=== PATIENT | female | born 1945 | race Caucasian/White ===

== ENCOUNTER → 2016-06-28 | Outpatient (CLI) | payer OTHER | LOC: FIMAGING 12:39 | PROVIDERS: ATTEND Internal Medicine Cardiovascular Disease | DX: Z03.89 Encounter for observation for other suspected diseases and conditions ruled out (principal); I10 Essential (primary) hypertension ==

== ENCOUNTER → 2016-11-15 | Outpatient (CLI) | payer OTHER | LOC: BMCIMAGING 13:05 | PROVIDERS: ATTEND Family Medicine | DX: R07.81 Pleurodynia (principal); R93.8 Abnormal findings on diagnostic imaging of other specified body structures; X50.0XXA Overexertion from strenuous movement or load, initial encounter | CPT/HCPCS: 71101-PO ==

== ENCOUNTER 2017-03-16 10:08 | Inpatient (IN) | payer OTHER ==
--- NOTE | 2017-03-16 10:56 | EDPHY ---
General Narrative: CHIEF COMPLAINT: High blood pressure, sore throat HISTORY OF PRESENT ILLNESS: Patient complains of sore throat but so she was sent here due to high blood pressure. She went to urgent care today due to complaints of sore throat. Sore throat has been [id number] for the past 2 days. No associated complaints with. She was sent here because the urgent care was concerned about her blood pressure. Blood pressure was reportedly in the 180 systolic and greater than 100 diastolic. She has had no headache, confusion, dizziness. She does report some right arm weakness and difficulty riding without hand starting yesterday morning. This was moderate to severe but has started to improve, but she says she was not concerned about it. She has had no chest pain or shortness of breath. No abdominal pain. No difficulty moving her lower extremities or left upper extremity. No history of stroke but she does have history of hypertension. Patient is a poor historian and says that she has not been on any medications for this recently. REVIEW OF SYSTEMS: Ten systems reviewed and are negative unless otherwise noted in the HPI PCP: Dr. Jaramillo SPECIALISTS: None PAST MEDICAL HISTORY: Hypertension not on medication PAST SURGICAL HISTORY: None SOCIAL HISTORY: Nonsmoker. Occasional alcohol. No drug use FAMILY HISTORY: Noncontributory EXAMINATION General Appearance: Alert, no distress, no facial droop Head: normocephalic, atraumatic Eyes: Pupils equal and round, no conjunctival pallor or injection ENT, Mouth: Mucous membranes moist. Uvula midline. No deviation of the tongue. Mild erythema of the posterior pharynx. No edema. Airway is widely patent. Neck: Normal inspection, supple, non-tender Respiratory: Lungs are clear to auscultation Cardiovascular: Regular rate and rhythm. No murmur. Symmetric radial pulses 2 +. Gastrointestinal: Abdomen is soft and nontender Back: non-tender, no bony abnormalities Neurological: A&O, cranial nerves 2-12 grossly intact. nonfocal, normal gait. Strength symmetric in the upper extremities. No pronator drift. No dysmetria. NIH stroke scale 0. Skin: Warm and dry, no rash Extremities: Nontender, no pedal edema Psychiatric: Mood and affect normal DIFFERENTIAL DIAGNOSES: Including but not limited to TIA, hypertensive urgency, hypertensive urgency, benign hypertension MDM: 10:50 a.m. Hypertension with right upper extremity weakness that has nearly resolved. NIH stroke scale is 0. Patient was sent over from Urgent Care. Dr. Shaw is aware the patient. He would like the patient to receive MRI of the brain, carotid Doppler ultrasound, laboratory studies. She is in no acute distress. She has no chest pain of any kind. She has been noncompliant intermittently with hypertensive medications. She is not currently taking any medications for hypertension. She is in no acute distress. No signs of acute stroke. 11:30 a.m. Laboratory studies thus far negative. Ultrasound of the carotids pending. MRI of the brain pending. No acute distress. 12:50 p.m. Notified by radiologist Dr. Ivey. Multiple abnormalities on the MRI of the brain. One of which is an acute stroke in the left parietal white matter measuring 10 mm. The 2nd is a subacute stroke in the right frontal white matter measuring 4 mm. There are other multiple areas of microvascular hemorrhage. 1:10 p.m. Case was discussed with neurologist Dr. Jimenez. He is requesting CT angiography of the head and neck. He will follow in consultation the patient. He agrees with our decision to place the patient on Cardene. Proceed with hospitalist admission. 1:15 p.m. Case discussed with hospitalist Jennifer Grimaldo. She will admit the patient to the service of Dr. May. CT angiography pending. She is in no acute distress and is admitted in stable condition. 1:55 p.m. Patient has return from CT angiography. She is awake and alert in no acute distress. Cardio will be commands. Continue with admission. She is in stable condition. 3:15 p.m. Patient has already been admitted transfer to floor but I was notified by radiologist the CT angiography of the head and neck is unremarkable. Patient is not a tPA candidate as her symptoms started on morning. SUPERVISION: Patient was evaluated and examined in conjunction with my secondary supervising physician as documented. We have both examined the patient. - Diagnostics Imaging Results: Imaging Impressions Carotid Doppler Study 03/16/17 10:49 Impression: Normal for age. No flow-limiting stenosis. Measurement of carotid stenosis is based on velocity parameters that correlate the residual internal carotid diameter with [place] Symptomatic Carotid Endarterectomy Trial (NASCET) based stenosis levels. Brain MRI 03/16/17 10:50 Impression: Extensive cerebral white matter disease bilaterally associated with multiple prior microhemorrhages and left parietal acute lacunar infarction and subacute right frontal white matter lacunar infarction. Findings are most suggestive of poorly controlled hypertension with secondary white matter disease and microhemorrhages versus amyloid angiopathy. Other diagnoses such as multiple sclerosis, infectious/inflammatory etiology, vasculitis are felt to be less likely. Results called to Travon Pike PA-C, at 12:50 PM. Head CTA 03/16/17 13:12 Impression: 1. Normal CT angiogram of the neck. 2. Relatively CT angiogram of the [place], as detailed above. 3. Mild partially calcified plaque involving the distal vertebral artery bilaterally adjacent to the brainstem. Note: All calculations were performed using NASCET criteria. Findings discussed with Travon Pike PAC at 14:40 hour, 03/16/2017. Neck CTA 03/16/17 13:12 Impression: 1. Normal CT angiogram of the neck. 2. Relatively CT angiogram of the [place], as detailed above. 3. Mild partially calcified plaque involving the distal vertebral artery bilaterally adjacent to the brainstem. Note: All calculations were performed using NASCET criteria. Findings discussed with Travon Pike PAC at 14:40 hour, 03/16/2017. - History Smoking Status: Former smoker - Objective Vital Signs: Initial Vital Signs Temperature (C) 97.9 F 03/16/17 10:17 Heart Rate 109 H 03/16/17 10:17 Respiratory Rate 18 03/16/17 10:17 Blood Pressure 194/139 H 03/16/17 10:17 O2 Sat (%) 94 03/16/17 10:17 O2 Delivery Mode Room Air Allergies/Adverse Reactions: acetaminophen [From Tylenol] Allergy (Verified 03/16/17 13:41) Swelling/neck,face,throat propranolol Allergy (Verified 03/16/17 13:41) Other-Enter Comments Home Medications: Medication Instructions Recorded Herbals/Supplements -Info Only 1 ea PO DAILY 03/16/17 Laboratory Results: Laboratory Results 03/16/17 10:55 03/16/17 10:55 03/16/17 03/16/17 03/16/17 11:35 10:55 10:55 WBC RBC Hgb Hct MCV MCH MCHC RDW Plt Count MPV Neut % (Auto) Lymph % (Auto) [place] % (Auto) Eos % (Auto) Baso % (Auto) Nucleat RBC Rel Count Absolute Neuts (auto) Absolute Lymphs (auto) Absolute Monos (auto) Absolute Eos (auto) Absolute Basos (auto) Absolute Nucleated RBC Immature Gran % Immature Gran # PT 12.9 SEC SEC (12.0-15.0) INR 0.95 (0.83-1.16) APTT 33.7 SEC SEC (23.0-38.0) Sodium 141 mEq/L mEq/L (134-144) Potassium 3.1 mEq/L L mEq/L (3.5-5.2) Chloride 98 mEq/L mEq/L (97-110) Carbon Dioxide 29 mEq/l mEq/l (22-31) Anion Gap 14 mEq/L mEq/L (8-16) BUN 9 mg/dL mg/dL (7-23) Creatinine 0.9 mg/dL mg/dL (0.6-1.0) Estimated GFR > 60 Glucose 99 mg/dL mg/dL (70-100) Hemoglobin A1c 5.5 % % (4.0-6.0) Estim Average Glucose 111 mg/dL mg/dL (68-126) Calcium 9.2 mg/dL mg/dL (8.5-10.4) Total Bilirubin 0.5 mg/dL mg/dL (0.1-1.4) Conjugated Bilirubin 0.2 mg/dL mg/dL (0.0-0.5) Unconjugated Bilirubin 0.3 mg/dL mg/dL (0.0-1.1) AST 43 IU/L IU/L (14-46) ALT 37 IU/L IU/L (9-52) Alkaline Phosphatase 82 IU/L IU/L (38-126) Troponin I < 0.012 ng/mL ng/mL (0.000-0.034) Total Protein 7.7 g/dL g/dL (6.3-8.2) Albumin 4.5 g/dL g/dL (3.5-5.0) Specimen Hemolysis 133 03/16/17 10:55 WBC 3.36 10^3/uL L 10^3/uL (3.80-9.50) RBC 5.41 10^6/uL H 10^6/uL (4.18-5.33) Hgb 14.9 g/dL g/dL (12.6-16.3) Hct 43.7 % % (38.0-47.0) MCV 80.8 fL L fL (81.5-99.8) MCH 27.5 pg L pg (27.9-34.1) MCHC 34.1 g/dL g/dL (32.4-36.7) RDW 14.0 % % (11.5-15.2) Plt Count 173 10^3/uL 10^3/uL (150-400) MPV 11.1 fL fL (8.7-11.7) Neut % (Auto) 58.9 % % (39.3-74.2) Lymph % (Auto) 25.6 % % (15.0-45.0) [place] % (Auto) 14.6 % H % (4.5-13.0) Eos % (Auto) 0.0 % L % (0.6-7.6) Baso % (Auto) 0.6 % % (0.3-1.7) Nucleat RBC Rel Count 0.0 % % (0.0-0.2) Absolute Neuts (auto) 1.98 10^3/uL 10^3/uL (1.70-6.50) Absolute Lymphs (auto) 0.86 10^3/uL L 10^3/uL (1.00-3.00) Absolute Monos (auto) 0.49 10^3/uL 10^3/uL (0.30-0.80) Absolute Eos (auto) 0.00 10^3/uL L 10^3/uL (0.03-0.40) Absolute Basos (auto) 0.02 10^3/uL 10^3/uL (0.02-0.10) Absolute Nucleated RBC 0.00 10^3/uL 10^3/uL (0-0.01) Immature Gran % 0.3 % % (0.0-1.1) Immature Gran # 0.01 10^3/uL 10^3/uL (0.00-0.10) PT INR APTT Sodium Potassium Chloride Carbon Dioxide Anion Gap BUN Creatinine Estimated GFR Glucose Hemoglobin A1c Estim Average Glucose Calcium Total Bilirubin Conjugated Bilirubin Unconjugated Bilirubin AST ALT Alkaline Phosphatase Troponin I Total Protein Albumin Specimen Hemolysis Medications Given: Diltiazem HCl 125 mg/ Dextrose 125 mls @ 0 mls/hr IV CONT BEN; Per Protocol PRN Reason: Protocol Stop: 09/12/17 16:29 Last Admin: 03/16/17 17:12 Dose: 125 mls Discontinued Medications Aspirin (Aspirin) 325 mg PO ONCE ONE Stop: 03/16/17 16:24 Last Admin: 03/16/17 17:04 Dose: 325 mg Diltiazem HCl (Cardizem 25 Mg/5 Ml Vial) 10 mg IVP ONCE ONE Stop: 03/16/17 16:31 Last Admin: 03/16/17 16:29 Dose: 10 mg Nicardipine/Sodium Chloride (Cardene 0.1 Mg/Ml (Premix)) 200 mls @ 0 mls/hr IV CONT BEN; Titrate PRN Reason: Protocol Stop: 09/12/17 12:59 Last Admin: 03/16/17 13:17 Dose: 200 mls Potassium Chloride (Klor-Con) 40 meq PO ONCE ONE PRN Reason: Protocol Stop: 03/16/17 16:38 Last Admin: 03/16/17 17:00 Dose: 40 meq Departure - Departure Disposition: [facility] Inpatient Acute Clinical Impression: Acute CVA (cerebrovascular accident), Hypertensive emergency Condition: Fair
[2017-03-16 11:06] LABS: % IMMATURE GRANULYOCYTES 0.3 % (0.0-1.1); ABSOLUTE IMMATURE GRANULOCYTES 0.01 10^3/uL (0.00-0.10); ADD DIFF? NO; ADD MORPH? NO; ADD SCAN? NO; ATYPICAL LYMPHOCYTE FLAG 30 (0-99); FRAGMENT RBC FLAG 0 (0-99); HEMATOCRIT 43.7 % (38.0-47.0); HEMOGLOBIN 14.9 g/dL (12.6-16.3); LEFT SHIFT FLG 0 (0-99); LIPEMIA HEMOLYSIS FLAG 90 (0-99); MEAN CELL HEMOGLOBIN 27.5 pg (27.9-34.1); MEAN CELL HEMOGLOBIN CONCENTR. 34.1 g/dL (32.4-36.7); MEAN CELL VOLUME 80.8 fL (81.5-99.8); MEAN PLATELET VOLUME 11.1 fL (8.7-11.7); PLATELET CLUMPS FLAG 0 (0-99); PLATELET COUNT 173 10^3/uL (150-400); RED BLOOD CELL COUNT 5.41 10^6/uL (4.18-5.33)
[2017-03-16 11:18] LABS: INR 0.95 (0.83-1.16); PROTIME(PATIENT) 12.9 SEC (12.0-15.0)
[2017-03-16 11:19] LABS: ALANINE AMINOTRANSFERASE 37 IU/L (9-52); ALBUMIN 4.5 g/dL (3.5-5.0); ALKALINE PHOSPHATASE 82 IU/L (38-126); ANION GAP 14 mEq/L (8-16); APTT 33.7 SEC (23.0-38.0); ASPARTATE AMINOTRANSFERASE 43 IU/L (14-46); BILIRUBIN,TOTAL 0.5 mg/dL (0.1-1.4); BILIRUBIN-CONJUGATED 0.2 mg/dL (0.0-0.5); BILIRUBIN-UNCONJUGATED 0.3 mg/dL (0.0-1.1); CALCIUM 9.2 mg/dL (8.5-10.4); CARBON DIOXIDE 29 mEq/l (22-31); CHLORIDE 98 mEq/L (97-110); CREATININE 0.9 mg/dL (0.6-1.0); GLOMERULAR FILTRATION RATE > 60; GLUCOSE 99 mg/dL (70-100); POTASSIUM 3.1 mEq/L (3.5-5.2); SODIUM 141 mEq/L (134-144); SPECIMEN HEMOLYSIS 133; TOTAL PROTEIN 7.7 g/dL (6.3-8.2)
[2017-03-16 11:30] LABS: TROPONIN I < 0.012 ng/mL (0.000-0.034)
[2017-03-16] MEDS ORDERED: niCARdipine/NACL 200 ML IV SCH (13:00)
--- NOTE | 2017-03-16 13:06 | CPEKG ---
Heart Rate: 98 RR Interval: 612 P-R Interval: 200 QRSD Interval: 84 QT Interval: 384 QTC Interval: 491 P [place]: 37 QRS [place]: -34 T Wave [place]: 58 EKG Severity - ABNORMAL ECG - EKG Impression: SINUS RHYTHM EKG Impression: LEFT AXIS DEVIATION EKG Impression: PROBABLE LEFT VENTRICULAR HYPERTROPHY EKG Impression: BORDERLINE PROLONGED QT INTERVAL Electronically Signed By: Krishna Shaw 16-Mar-2017 15:22:03
[2017-03-16] MEDS ORDERED: IOPAMIDOL (ISOVUE 370) 100 ML BTL IV ONE (13:21)
[2017-03-16 14:18] LABS: HEMOGLOBIN A1C 5.5 % (4.0-6.0)
[2017-03-16] MEDS ORDERED: LABETALOL HCL 5 MG/ML 20 ML MDV IVP PRN (16:01)
--- NOTE | 2017-03-16 16:04 | CPEKG ---
Heart Rate: 132 RR Interval: 455 QRSD Interval: 82 QT Interval: 320 QTC Interval: 474 QRS [place]: 14 EKG Severity - ABNORMAL ECG - EKG Impression: ATRIAL FIBRILLATION EKG Impression: VENTRICULAR PREMATURE COMPLEX EKG Impression: ABERRANT COMPLEX EKG Impression: PROBABLE LVH WITH SECONDARY REPOL ABNRM EKG Impression: ST DEPRESSION, CONSIDER ISCHEMIA, ANT-LAT LDS Electronically Signed By: Rusty Castaneda 16-Mar-2017 20:51:34
[2017-03-16] MEDS ORDERED: DILTIAZEM 25 MG/5 ML VIAL IVP ONE ×2 (16:11→16:30)
[2017-03-16] MEDS ORDERED: ASPIRIN 325 MG TAB PO ONE (16:23)
[2017-03-16] MEDS ORDERED: PROTOCOL MAGNESIUM 1 DOSE IV PRN (16:25)
[2017-03-16] MEDS ORDERED: PROTOCOL POTASSIUM 1 DOSE MISC PRN (16:25)
[2017-03-16] MEDS ORDERED: ONDANSETRON DISINTEGRATING 4 MG TAB PO PRN (16:28)
[2017-03-16] MEDS ORDERED: ONDANSETRON 4 MG/2 ML VIAL IVP PRN (16:28)
[2017-03-16] MEDS ORDERED: POTASSIUM CL 10 MEQ TAB PO ONE ×2 (16:37→18:38)
[2017-03-16] MEDS: DILTIAZEM 125 MG in D5W 125 ML IV SCH (17:12)
--- NOTE | 2017-03-16 17:45 | GHP ---
[f rep st] HISTORY AND PHYSICAL DATE OF ADMISSION: 03/16/2017 CHIEF COMPLAINT: High blood pressure, sore throat, and recent motor dysfunction of her right arm. HISTORY OF PRESENT ILLNESS: The patient is a 71-year-old female with a history of hypertension which is untreated, who presents to the emergency department complaining of elevated blood pressure and sore throat. She went to Urgent Care and was noted to have elevated blood pressure greater than 180/100. She further reports that she had some difficulty writing with her right hand yesterday and also noticed some weakness in her right upper extremity. Her symptoms improved so she did not seek care. She denies a history of headaches or vision changes. She denies chest pain or shortness of breath. During my evaluation, she appears to be in rapid AFib and does indeed endorse heart palpitations but is currently chest pain free. In the emergency department, a brain MRI revealed acute and subacute strokes with prior microhemorrhages, likely related to uncontrolled hypertension. A carotid artery Doppler study showed no flow limiting stenosis. She was placed on a Cardene drip for a blood pressure of 220/120 and was admitted to the intensive care unit for further management. PAST MEDICAL HISTORY: Hypertension, not treated. MEDICATIONS: Please see [employer] for completed outpatient medication list. ALLERGIES: Acetaminophen and propranolol she states causes high blood pressure and suicidality. SOCIAL HISTORY: Patient lives independently. She denies tobacco. She reports infrequent alcohol use. She denies drug use. FAMILY HISTORY: Negative for stroke. REVIEW OF SYSTEMS: A 10-point review of systems was performed and is negative except as per HPI. OBJECTIVE: VITAL SIGNS: Temperature is 36.9, current blood pressure is 140/91 , heart rate 130s to 150s, respiratory rate 18. She is 92% on room air. GENERAL: The patient is awake, alert, and oriented, in no acute distress. HEENT: Head is atraumatic, normocephalic. Pupils equal, round, react to light. Extraocular muscles are intact. Oropharynx is clear. Mucous membranes are moist. NECK: Supple. There is no JVD. HEART: Irregularly irregular and tachycardic without murmur. LUNGS: Clear to auscultation bilaterally. ABDOMEN : Soft, nondistended, nontender with normoactive bowel tones. EXTREMITIES: Without cyanosis, clubbing, or edema. NEUROLOGIC: She moves all 4 extremities. There is no focal weakness. No facial asymmetry. Pronator drift is negative. She has 5/5 extensor muscle strength in upper and lower extremities bilaterally. No gaze deviation and visual collins are intact. LABORATORY DATA: CBC reveals a white blood cell count of 3.3, hemoglobin 14.9, platelets 173. INR is normal at 0.95. Complete metabolic panel is remarkable for a potassium of 3.1, otherwise normal. Creatinine normal at 0.9. Troponin is negative. EKG performed in the emergency department shows normal sinus rhythm with a heart rate of 98. Stat EKG performed at the bedside upon my arrival in the ICU shows atrial fibrillation with rapid ventricular rate of [address] depression in her lateral leads, which may be rate related. Brain MRI shows extensive cerebral white matter disease associated with multiple prior microhemorrhages and left parietal acute lacunar infarction and subacute right frontal white matter lacunar infarction. Carotid artery Doppler study is negative for flow-limiting stenosis. CT angiogram head and neck is negative for large vessel occlusion. Chest x-ray is negative for an acute cardiopulmonary process. IMPRESSION: The patient is a 71-year-old female with a history of untreated hypertension, who presents to the emergency department with elevated blood pressure and evidence of acute and subacute ischemic stroke. 1. Acute and subacute ischemic cerebrovascular accident. The patient has developed rapid A fib since arrival, and her multifocal infarcts are likely from a cardioembolic source. Echocardiogram is pending. Will give full dose ASA now. She was initially treated with a Cardene drip, and her current SBP is 140, 80 points lower than her presenting pressure. I will discontinue the Cardene drip as she will need rate control agent for her atrial fibrillation. Will plan for relatively permissive hypertension moving forward. Neurology is consulted. Lipid panel is ordered for the morning. She is started on a statin. PT, OT evaluations are requested. 2. Atrial fibrillation with rapid ventricular rate. Appears to be new onset, though the patient is a poor historian. Her CHADS-VASc score is 5 based on age , gender, hypertension, and new diagnosis of stroke. Check TSH, echocardiogram as above. Rate control with diltiazem. Consider Amiodarone if this is not sufficient. She will need anticoagulation at some point when deemed appropriate by Neurology consultation, likely in 3-5 days. Will trend troponin. Chest x-ray shows no evidence of heart failure, and the patient appears euvolemic. Cardiology consult requested. 3. Hypertension. As above, the plan is for permissive hypertension, treating blood pressure greater than 220/120 in the setting of acute ischemic stroke. However, she does need rate control, thus, will receive diltiazem. 4. Hypokalemia. Will replace and follow per electrolyte protocol. 5. Code status: Patient is full code. 6. Deep venous thrombosis prophylaxis. Will place SCDs for now and start Lovenox in the morning. DISPOSITION: Patient is admitted to inpatient status. I anticipate she will require greater than 48 hours hospitalization for ongoing management of her acute stroke and new onset atrial fibrillation. /[id number]/MODL MTDD
[2017-03-16 18:28] LABS: POTASSIUM 2.8 mEq/L (3.5-5.2)
[2017-03-16] MEDS: ATORVASTATIN CALCIUM 40 MG TAB PO SCH (18:46)
[2017-03-16] MEDS ORDERED: NS 500 ML IV ONE (19:31)
[2017-03-16] MEDS ORDERED: DIGOXIN 500 MCG/2 ML AMP IVP ONE ×2 (19:31→22:30)
--- NOTE | 2017-03-16 20:11 | PDMN ---
Medical Necessity Medical necessity: C/M review: est. > 2 MN LOS for eval and TX of acute and subacute cerebrovascular accident, atrial fibrillation with rapid ventricular response, hypokalemia, hypertension requiring planned neurology consult, Rehab eval consult, ongoing IV Diltiazem infusion, cardiac monitoring , acute inpt PT/ OT/ST, comorbid history of hypertension not treated per H/P.
[2017-03-17 00:10] LABS: TROPONIN I 0.375 ng/mL (0.000-0.034)
[2017-03-17 05:24] LABS: HEMATOCRIT 38.5 % (38.0-47.0); HEMOGLOBIN 12.7 g/dL (12.6-16.3); MEAN CELL HEMOGLOBIN 26.9 pg (27.9-34.1); MEAN CELL VOLUME 81.6 fL (81.5-99.8); RED BLOOD CELL COUNT 4.72 10^6/uL (4.18-5.33); RED CELL DISTRIBUTION WIDTH 14.1 % (11.5-15.2)
[2017-03-17 05:36] LABS: ANION GAP 9 mEq/L (8-16); CALCIUM 8.2 mg/dL (8.5-10.4); CARBON DIOXIDE 27 mEq/l (22-31); CHLORIDE 107 mEq/L (97-110); CHOLESTEROL 185 mg/dL (140-220); CREATININE 0.7 mg/dL (0.6-1.0); GLOMERULAR FILTRATION RATE > 60; GLUCOSE 99 mg/dL (70-100); HIGH DENSITY LIPOPROTEIN 43 mg/dL (40-85); LDL/HDL RATIO 3.07 RATIO (1.00-3.22); LOW DENSITY LIPOPROTEIN 132 mg/dL (80-100); MAGNESIUM 1.7 mg/dL (1.6-2.3); NON-HIGH DENSITY LIPOPROTEIN 142 mg/dL (90-129); POTASSIUM 3.6 mEq/L (3.5-5.2); SODIUM 143 mEq/L (134-144); TRIGLYCERIDE 52 mg/dL (35-135); VERY LOW DENSITY LIPOPROTEINS 10 mg/dL (8-25)
[2017-03-17] MEDS: DILTIAZEM 125 MG in D5W 125 ML IV SCH (06:09)
[2017-03-17] MEDS ORDERED: POTASSIUM CL 10 MEQ TAB PO ONE (07:07)
[2017-03-17] MEDS ORDERED: MAGNESIUM SULF 1 GM/DEXTROSE 100 ML IV ONE (07:08)
[2017-03-17] MEDS: ATORVASTATIN CALCIUM 40 MG TAB PO SCH (07:47)
[2017-03-17] MEDS: ASPIRIN EC 325 MG TAB PO SCH (07:48)
--- NOTE | 2017-03-17 09:18 | PDCARCONS ---
Cardiology Consult Reason for Consult: New atrial fibrillation Chief Complaint: Throat pain with high blood pressures Requesting Physician: Hospitalists History of Present Illness: Patient is a 71 y/o female with history of untreated HTN, without CAD, DM, or knowledge of HLP, who presented to [facility] ER with complaints of sore throat, elevated blood pressure and right right sided weakness. Initial evaluation in urgent care with evolution toward assessment of possible CVA given the right sided weakness that was noted. MRI of head with acute left parietal infarct and subacute right frontal white matter lancunar infarction with microhemorrhages. While evaluation was being performed, telemetry revealed atrial fibrillation with rapid ventricular response. Admission to the ICU for neuro checks and IV CCB therapy. Digoxin assisted with rate/rhythm control. No cardiovascular complaints of chest pains or pressure. No PND or orthopnea. No fevers or chills. Carotid ultrasound with minimal PVD noted (no more than 5 % luminal irregularities were reported). Overnight, the patient converted to normal sinus rhythm (rates of 70-80 bpm). Mild troponin elevation was noted (peak to 0.4 at the time of this note). Remainder of the 12 point ROS was unremarkable. Patient did report that she has been told in the past that she snores. History Information - Allergies/Home Medication List Allergies/Adverse Reactions: acetaminophen [From Tylenol] Allergy (Verified 03/16/17 13:41) Swelling/neck,face,throat propranolol Allergy (Verified 03/16/17 13:41) Other-Enter Comments Home Medications: Herbals/Supplements -Info Only 1 ea PO DAILY 03/16/17 [Last Taken Unknown] I have personally reviewed and updated: family history, medical history, social history, surgical history Past Medical History: - Past Medical History atrial fibrillation, hypertension - Surgical History Reports: no pertinent surgical hx - Family History Positive for: hypertension, stroke - Social History Smoking Status: Former smoker Alcohol Use: Rarely Drug Use: None Cardiac History - Cardiac History Cardiac Risk Factors: hypertension (>140/90), age > 65 Timing/Duration: Hours Severity: moderate Severity Scale: 5 Location: other (sore throat) Activities at Onset: none Modifying Factors: improves with: lying down, oxygen, rest Associated Symptoms: other (awareness of elevated blood pressure) Age in Years: 65-74 ([id number] score of 4 (age, sex, and CVA)) Physical Exam Physical Exam: Temp Pulse Resp BP Pulse Ox 37.2 C 90 16 158/99 H 100 03/17/17 04:00 03/17/17 06:09 03/17/17 04:00 03/17/17 04:00 03/17/17 04:00 O2 (L/minute) 2 Constitutional: no apparent distress, appears nourished, not in pain Eyes: PERRL Ears, Nose, Mouth, Throat: moist mucous membranes, hearing normal, ears appear normal Cardiovascular: regular rate and rhythym, no murmur, rub, or gallop, No systolic murmur, No irregularly irregular, No diastolic murmur, No JVD Peripheral Pulses: 2+: dorsalis-pedis (R), dorsalis-pedis (L) Respiratory: no respiratory distress, no rales or rhonchi, clear to auscultation Gastrointestinal: normoactive bowel sounds, soft, non-tender abdomen Skin: warm, normal color Musculoskeletal: full muscle strength, no muscle tenderness Neurologic: AAOx3, sensation intact bilaterally, CN II-XII Intact Psychiatric: interacting appropriately, not anxious, not encephalopathic Lab and Imaging 03/17/17 04:50 03/17/17 04:50 WBC 3.08 10^3/uL (3.80-9.50) L 03/17/17 04:50 RBC 4.72 10^6/uL (4.18-5.33) 03/17/17 04:50 Hgb 12.7 g/dL (12.6-16.3) 03/17/17 04:50 Hct 38.5 % (38.0-47.0) 03/17/17 04:50 MCV 81.6 fL (81.5-99.8) 03/17/17 04:50 MCH 26.9 pg (27.9-34.1) L 03/17/17 04:50 MCHC 33.0 g/dL (32.4-36.7) 03/17/17 04:50 RDW 14.1 % (11.5-15.2) 03/17/17 04:50 Plt Count 163 10^3/uL (150-400) 03/17/17 04:50 MPV 11.1 fL (8.7-11.7) 03/16/17 10:55 Neut % (Auto) 58.9 % (39.3-74.2) 03/16/17 10:55 Lymph % (Auto) 25.6 % (15.0-45.0) 03/16/17 10:55 Glynn % (Auto) 14.6 % (4.5-13.0) H 03/16/17 10:55 Eos % (Auto) 0.0 % (0.6-7.6) L 03/16/17 10:55 Baso % (Auto) 0.6 % (0.3-1.7) 03/16/17 10:55 Nucleat RBC Rel Count 0.0 % (0.0-0.2) 03/16/17 10:55 Absolute Neuts (auto) 1.98 10^3/uL (1.70-6.50) 03/16/17 10:55 Absolute Lymphs (auto) 0.86 10^3/uL (1.00-3.00) L 03/16/17 10:55 Absolute Monos (auto) 0.49 10^3/uL (0.30-0.80) 03/16/17 10:55 Absolute Eos (auto) 0.00 10^3/uL (0.03-0.40) L 03/16/17 10:55 Absolute Basos (auto) 0.02 10^3/uL (0.02-0.10) 03/16/17 10:55 Absolute Nucleated RBC 0.00 10^3/uL (0-0.01) 03/16/17 10:55 Immature Gran % 0.3 % (0.0-1.1) 03/16/17 10:55 Immature Gran # 0.01 10^3/uL (0.00-0.10) 03/16/17 10:55 PT 12.9 SEC (12.0-15.0) 03/16/17 10:55 INR 0.95 (0.83-1.16) 03/16/17 10:55 APTT 33.7 SEC (23.0-38.0) 03/16/17 10:55 Sodium 143 mEq/L (134-144) 03/17/17 04:50 Potassium 3.6 mEq/L (3.5-5.2) 03/17/17 04:50 Chloride 107 mEq/L (97-110) 03/17/17 04:50 Carbon Dioxide 27 mEq/l (22-31) 03/17/17 04:50 Anion Gap 9 mEq/L (8-16) 03/17/17 04:50 BUN 7 mg/dL (7-23) 03/17/17 04:50 Creatinine 0.7 mg/dL (0.6-1.0) 03/17/17 04:50 Estimated GFR > 60 03/17/17 04:50 Glucose 99 mg/dL (70-100) 03/17/17 04:50 Hemoglobin A1c 5.5 % (4.0-6.0) 03/16/17 11:35 Estim Average Glucose 111 mg/dL (68-126) 03/16/17 11:35 Calcium 8.2 mg/dL (8.5-10.4) L 03/17/17 04:50 Magnesium 1.7 mg/dL (1.6-2.3) 03/17/17 04:50 Total Bilirubin 0.5 mg/dL (0.1-1.4) 03/16/17 10:55 Conjugated Bilirubin 0.2 mg/dL (0.0-0.5) 03/16/17 10:55 Unconjugated Bilirubin 0.3 mg/dL (0.0-1.1) 03/16/17 10:55 AST 43 IU/L (14-46) 03/16/17 10:55 ALT 37 IU/L (9-52) 03/16/17 10:55 Alkaline Phosphatase 82 IU/L (38-126) 03/16/17 10:55 Troponin I 0.445 ng/mL (0.000-0.034) H 03/17/17 04:50 Total Protein 7.7 g/dL (6.3-8.2) 03/16/17 10:55 Albumin 4.5 g/dL (3.5-5.0) 03/16/17 10:55 Triglycerides 52 mg/dL (35-135) 03/17/17 04:50 Cholesterol 185 mg/dL (140-220) 03/17/17 04:50 Cholesterol Risk Factr 1.0 (0.2-1.0) 03/17/17 04:50 LDL Cholesterol, Calc 132 mg/dL (80-100) H 03/17/17 04:50 LDL Risk Factor 1.0 (0.2-1.0) 03/17/17 04:50 VLDL Cholesterol 10 mg/dL (8-25) 03/17/17 04:50 Non-HDL Cholesterol 142 mg/dL (90-129) H 03/17/17 04:50 HDL Cholesterol 43 mg/dL (40-85) 03/17/17 04:50 LDL/HDL Ratio 3.07 RATIO (1.00-3.22) 03/17/17 04:50 Cholesterol/HDL Ratio 4.30 RATIO (1.00-4.44) 03/17/17 04:50 TSH 0.868 uIU/mL (0.465-4.680) 03/16/17 18:03 Specimen Hemolysis 133 03/16/17 10:55 Visualized and Interpreted Chest x-ray results: Yes Chest X-ray Interpretation: no infiltrate, normal Visualized and Interpreted EKG results: Yes EKG Interpretation: Positive for: normal sinsus rhythm Telemetry: normal sinus rhythm currently noted A/P Assessment: Patient is a 71 y/o female with history of untreated HTN, but no CAD, DM, or HLP , who presented to urgent care with complaints of sore throat and elevated blood pressures. Assessment with notable HTN as well as pAF noted on telemetry. Complaints of right sided weakness led to neuro assessment with MRI and findings consistent with acute left CVA and subacute right CVA. Microvascular disease was also noted. HTN likely etiology for some of the neuro findings appreciated, but with the CVAs and the atrial fibrillation, diagnosis and treatment recommendations evolved. Minor elevation in troponin was noted. No ischaemic changes on ECG, and no active CV complaints of chest pains or pressure. [id number] score of 4 with age, sex, and CVA findings. Plan: Would aggressively treat noted hypertension (convert IV to oral therapy). Would start anticoagulation above and beyond ASA therapy given the pAF and CVA findings. Arguing for Coumadin/Warfarin is affordability and reversibility. Of some concern is follow up. Subtherapeutic INR confers no CVA prophylaxis. Supratherapeutic INR elevates bleeding risk. NOAC therapy does not require the routine following of levels, but is expensive. All of these therapies have elevated risk for bleeding. Patient should have prashanth MPI testing, but this testing does not need to occur with this admission. Formal sleep study should be performed with history of "snoring" and the pAF that has been noted. Would assess cholesterol and LFTs to determine if indication for cholesterol therapy exist. Outpatient follow up with cardiology and PCP are needed to ensure (a) compliance with medical therapy, and (b) further cardiovascular testing is performed. Regular and routine exercise is indicated. Would have PT/OT see patient in inpatient setting prior to discharge (patient refused therapy this morning).
--- NOTE | 2017-03-17 09:53 | HOSPPROG ---
Hospitalist Progress Note Assessment/Plan: Acute and subacute ischemic CVA - suspect cardio-embolic source. -Cont ASA, statin -PT/OT A fib with RVR - converted back to NSR last night after IV digoxin load, which she received for rate control due to persistently elevated HR on dilt drip. Chads-vasc 5. TSH normal. -transition to oral dilt -needs anti-coagulation, timing per neurology recs (?3-5 days) -echo pending Hypertension - Oral dilt today, continue to work on BP control over next 48 hrs. Elevated troponin - likely demand ischemia in setting of rapid A fib, but with risk factors, needs risk stratification. Discussed with cards. -Lexiscan prior to dc Full code DVT PPLX - Lovenox Dispo - transfer to Subjective: Pt feels ok, c/o sore throat and URI symptoms. No woody, vision changes or focal weakness. Left hand feels a little different than normal. Objective: Vital Signs Temp Pulse Resp BP Pulse Ox 37.2 C 90 16 158/99 H 100 03/17/17 04:00 03/17/17 06:09 03/17/17 04:00 03/17/17 04:00 03/17/17 04:00 Laboratory Results 03/17/17 04:50 03/17/17 04:50 03/16/17 03/17/17 03/18/17 05:59 05:59 05:59 Intake Total 2641.3 Output Total 200 Balance 2441.3 PT 12.9 SEC (12.0-15.0) 03/16/17 10:55 INR 0.95 (0.83-1.16) 03/16/17 10:55 - Physical Exam Constitutional: no apparent distress Eyes: PERRL Ears, Nose, Mouth, Throat: moist mucous membranes Cardiovascular: regular rate and rhythym, no murmur, rub, or gallop Respiratory: no respiratory distress, clear to auscultation Gastrointestinal: normoactive bowel sounds, soft, non-tender abdomen Skin: warm Musculoskeletal: full muscle strength Neurologic: AAOx3 Psychiatric: interacting appropriately ICD10 Worksheet Patient Problems: Problems Problem Status Onset Acute CVA (cerebrovascular accident) Acute Hypertensive emergency Acute Hypertensive urgency Acute
[2017-03-17] MEDS: DILTIAZEM 30 MG TAB PO SCH ×4 (10:36→22:44)
--- NOTE | 2017-03-17 13:22 | NEUROPROG ---
Assessment: [id number] CC: Stroke HPI: Pt admitted to [facility] on 03/17/17 after she presented to the hospital with right arm weakness. A brain MRI showed an acute left parietal and subacute left frontal stroke. Pt then found to be in afib which was felt to be mechanism of stroke. CTA head/neck unremarkable. She reported a history of untreated HTN. Her brain MRI also showed multiple old microhemorrhages consistent with hypertensive microbleeds versus less likely amyloid angiopathy. Pt started on aspirin for stroke prevention and statin. I initially saw the patient on . She felt her right arm strength was improving. PMHx: untreated HTN Home Meds: none SHx: no tobacco FHx: no stroke ROS: Pt denied acute fever, total vision loss, active severe chest pain, respiratory failure, total body severe rash, total bowel/bladder incontinence, psychosis, active seizures, or active bleeding O: VS reviewed General: Alert Eyes: Fundoscopic exam not able to visualize optic disks CV: Heart RRR, no murmur, no carotid bruit Lungs: Clear to auscultation bilaterally, no rhonchi or rales Neuro: - Mental: . Oriented x person/place/date . concentration appears normal . speech fluency/comprehension normal . memory appears normal . fund of knowledge appear intact - Cranial Nerves: . II: PERRL, VFFTC . III/IV/: EOMI, no nystagmus, normal smooth pursuits, no Ptosis . V: facial sensation intact to LT . VII: face symmetric to eye closure and smile . VIII: hearing intact to conversation . IX/X: uvula raises symmetrically . XI: SCM 5/5 B/L strength . XII: tongue protrudes midline w/nl strength - Motor: . Tone: normal tone in all 4 extremity . 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 Acute small left parietal and subacute small right frontal strokes from afib : Pt with known afib and strokes in multiple vascular territories so this is likely the cause. CTA head/neck unremarkable for alternative causes. 2. HTN 3. Multiple old microhemorrhages on brain MRI 03/16/17: Treatment will be aimed at excellent blood pressure control. Pt counseled that she has micro- hemorrhages that seems most likely to be from uncontrolled hypertension but may be due to amyloid angiopathy and that both are risk factors for intracerebral hemorrhage. Beginning anticoagulation increases bleed risk but it reduces stroke risk from afib to such a degree that I feel the benefits of anticoagulation outweigh risks, she accepts the risks of bleed and agrees to the oral anticoagulation on 03/17/17 4. New onset afib: hospitalist addressing, cardiology consulted Plan: - TTE to exclude cardiac thrombus - Agree with cardiology consult for new afib - Blood pressure < 220/120 x 48 hours then < 140/90 - LDL < 70 (132), pt started on statin - H1AC < 7.0 (5.5) - Begin aspirin 325 mg qd (not taking prior to stroke), on hospital discharge ( or within 5 days if here longer) begin oral anticoagulation and stop aspirin - PT/OT/Speech Objective: Vital Signs Temp Pulse Resp BP Pulse Ox 37.2 C 90 16 158/99 H 100 03/17/17 04:00 03/17/17 06:09 03/17/17 04:00 03/17/17 04:00 03/17/17 04:00 Laboratory Results 03/17/17 04:50 03/17/17 04:50 03/16/17 03/17/17 03/18/17 05:59 05:59 05:59 Intake Total 2641.3 Output Total 200 Balance 2441.3 PT 12.9 SEC (12.0-15.0) 03/16/17 10:55 INR 0.95 (0.83-1.16) 03/16/17 10:55 Allergies/Adverse Reactions: acetaminophen [From Tylenol] Allergy (Verified 03/16/17 13:41) Swelling/neck,face,throat propranolol Allergy (Verified 03/16/17 13:41) Other-Enter Comments
--- NOTE | 2017-03-17 17:54 | ASMTCMCOM ---
CM Note CM Note Notes: Pt in for uncontrolled hypertension. She lives alone but rents out room in her house. PT recommends hc but OT recommends inpt rehab. DC needs unclear, BAYLEE w/f Date Signed: 03/17/2017 05:54 PM Electronically Signed By:Nya Solitario RN
[2017-03-18] MEDS ORDERED: hydrALAZINE 25 MG TAB PO PRN (00:23)
[2017-03-18] MEDS: DILTIAZEM 30 MG TAB PO SCH (04:33)
[2017-03-18 05:10] LABS: MAGNESIUM 1.6 mg/dL (1.6-2.3)
[2017-03-18] MEDS: DILTIAZEM CD 120 MG CAP PO SCH (07:59)
[2017-03-18] MEDS: ASPIRIN EC 325 MG TAB PO SCH (08:00)
[2017-03-18] MEDS: ATORVASTATIN CALCIUM 40 MG TAB PO SCH (08:06)
[2017-03-18] MEDS ORDERED: amLODIPine BESYLATE 5 MG TAB PO SCH (09:00)
--- NOTE | 2017-03-18 09:06 | HOSPPROG ---
Hospitalist Progress Note Assessment/Plan: Acute and subacute ischemic CVA - suspect cardio-embolic source. -Cont ASA, statin -PT/OT recommending rehab, but pt does not want to go to rehab A fib with RVR - converted back to NSR. Chads-vasc 5. TSH normal. -cont oral dilt for rate control -needs anti-coagulation, start at d/c per neurology -echo pending, I've requested it be read (per tech, no thrombus was seen) Hypertension - Not controlled, goal at this point is <140/90 -cont oral dilt -add norvasc Elevated troponin - likely demand ischemia in setting of rapid A fib, but with risk factors, needs risk stratification. Discussed with cards. -Lexiscan in am URI - CXR was negative. Supportive care. Pt declined mucinex. ?THELMA - needs outpt sleep study Full code DVT PPLX - Lovenox Dispo - cont inpt, PT/OT recommending rehab, but pt doesn't sound agreeable. HHC at minimum. Subjective: Pt still has cough, URI symptoms. No fevers. No CP or SOB. NSR overnight. No focal weakness. Objective: Vital Signs Temp Pulse Resp BP Pulse Ox 37.0 C 82 18 169/114 H 93 03/18/17 07:43 03/18/17 07:43 03/18/17 07:43 03/18/17 07:43 03/18/17 07:43 Laboratory Results 03/17/17 04:50 03/18/17 04:40 03/17/17 03/18/17 03/19/17 05:59 05:59 05:59 Intake Total 2641.3 1379.3 Output Total 200 1200 Balance 2441.3 179.3 PT 12.9 SEC (12.0-15.0) 03/16/17 10:55 INR 0.95 (0.83-1.16) 03/16/17 10:55 - Physical Exam Constitutional: no apparent distress Eyes: PERRL Ears, Nose, Mouth, Throat: moist mucous membranes Cardiovascular: regular rate and rhythym Respiratory: no respiratory distress, clear to auscultation Gastrointestinal: normoactive bowel sounds, soft, non-tender abdomen Skin: warm Musculoskeletal: full muscle strength Neurologic: AAOx3 Psychiatric: interacting appropriately ICD10 Worksheet Patient Problems: Problems Problem Status Onset Acute CVA (cerebrovascular accident) Acute Hypertensive emergency Acute Hypertensive urgency Acute
--- NOTE | 2017-03-18 09:31 | ECHO ---
[email or web address] [address] [address] Main: [phone] Fax: Transthoracic Echocardiogram Name: TOBIAS KAPLAN MR#: [id number] Study Date: 03/16/2017 Study Time: 04:00 PM Date of : 1945 Age: 71 year(s) Height: 160 cm (63 in.) Weight: 61.24 kg (135 lb.) BSA: 1.64 m2 Gender: Female Examination: Echo Indication: ischemic stroke Image Quality: Adequate Contrast: Requested by: Len Jimenez BP: 144 mmHg/66 mmHg Heart Rate: Rhythm: Atrial fibrillation Indication: ischemic stroke Procedure Staff Hammerer Helper: Jess Thomas Reading Physician: Harmeet Stephenson Requesting Provider: Conclusions: Normal size left ventricle. Severe concentric LV hypertrophy. Global hypercontractility of the left ventricle. No regional wall motion abnormality. Unable to assess diastolic dysfunction. Normal size right ventricle. Normal RV function. The left atrium is normal in size. The right atrium is normal in size. The mitral valve is normal in appearance and function. Trivial mitral valve regurgitation. Trivial aortic valve regurgitation. The tricuspid valve is normal in appearance and function. Trivial to mild tricuspid valve regurgitation. Pulmonary valve not well visualized. Normal size ascending aorta measuring 3.4 cm. Measurements: Chambers Valvular Assessment AV/MV Valvular Assessment TV/PV Normal Normal Normal Name Value Range Name Value Range Name Value Range IVSd (2D): 1.8 cm (0.6 cm-1.1 AV Vmax: 1.57 m/s (1 m/s-1.7 TR Vmax: 2.76 mm/s ( - ) cm) m/s) TR PGmax: 30 mmHg ( - ) LVDd (2D): 3.6 cm (3.9 cm-5.3 AV maxP mmHg ( - ) syst. PAP: 35 mmHg ( - ) cm) LVOT Vmax: 1.87 m/s (0.7 m/s-1.1 PV Vmax: 1.25 m/s (0.6 m/s-0.9 LVDs (2D): 1.8 cm (2.1 cm-4 m/s) m/s) cm) MV E Vmax: 1.01 m/s ( - ) PV PGmax: 6 mmHg ( - ) LVPWd (2D): 1.5 cm ( - ) Continued Measurements: Patient: TOBIAS KAPLAN Study Date: 03/16/2017 Page 1 of 2 04:00 PM Chambers Valvular Assessment TV/PV Name Value Name Value LADs Lon.0 cm CVP (est.): 5 mmHg LA Area: 15.4 cm2 LA Volume: 43 ml LA Volume Index: 26.2 ml/m2 Additional Vessels Name Value Ao Ascendin.4 cm Findings: Left Ventricle: Normal size left ventricle. Severe concentric LV hypertrophy. Global hypercontractility of the left ventricle. No regional wall motion abnormality. Unable to assess diastolic dysfunction. Right Ventricle: Normal size right ventricle. Normal RV function. Left Atrium: The left atrium is normal in size. Right Atrium: The right atrium is normal in size. Mitral Valve: The mitral valve is normal in appearance and function. Trivial mitral valve regurgitation. No mitral stenosis is present. Aortic Valve: The aortic valve is normal in appearance and function. Trivial aortic valve regurgitation. No aortic valve stenosis is present. Tricuspid Valve: The tricuspid valve is normal in appearance and function. Trivial to mild tricuspid valve regurgitation. The pulmonary artery pressure is mildly increased. Right ventricular systolic pressure measures 35mmHg. Pulmonic Valve: Pulmonary valve not well visualized. Aorta: The aorta is normal. Normal size ascending aorta measuring 3.4 cm. Pericardium: No pericardial effusion. (No Signature Object) Patient: TOBIAS KAPLAN Study Date: 03/16/2017 Page 2 of 2 04:00 PM [id number]
[2017-03-18] MEDS ORDERED: REGADENOSON 0.4 MG/5 ML SYR IVP ONE (10:12)
--- NOTE | 2017-03-18 10:20 | PDCARPN ---
Cardiology Progress Note Chief Complaint: Patient without cardiovascular complaints overnight, but there were reports of ongoing elevation to blood pressure. Assessment/Plan: Assessment: 03-18-17 No cardiovascular complaints. Chest pains are noted, but appear to be directly related to coughing that the patient has noted. Troponin elevated was noted, but trend toward normal has been noted. Concerns with troponin and complaints of chest pains led to desire to have MPI testing while inpatient (furthermore, we have the patient present, and can accomplish today). Sonja MPI is pending this morning. Mild right hand weakness continues to be noted. No PND or orthopnea. No fevers or chills. Seven hours of sleep last night. Echocardiogram with normal LVEF, and no pinky pathology noted. Cough is productive. 03-17-17 Patient is a 71 y/o female with history of untreated HTN, without CAD, DM, or knowledge of HLP, who presented to [facility] ER with complaints of sore throat, elevated blood pressure and right right sided weakness. Initial evaluation in urgent care with evolution toward assessment of possible CVA given the right sided weakness that was noted. MRI of head with acute left parietal infarct and subacute right frontal white matter lancunar infarction with microhemorrhages. While evaluation was being performed, telemetry revealed atrial fibrillation with rapid ventricular response. Admission to the ICU for neuro checks and IV CCB therapy. Digoxin assisted with rate/rhythm control. No cardiovascular complaints of chest pains or pressure. No PND or orthopnea. No fevers or chills. Carotid ultrasound with minimal PVD noted (no more than 5 % luminal irregularities were reported). Overnight, the patient converted to normal sinus rhythm (rates of 70-80 bpm). Mild troponin elevation was noted (peak to 0.4 at the time of this note). Remainder of the 12 point ROS was unremarkable. Patient did report that she has been told in the past that she snores Plan: (1) Will perform Sonja MPI today (2) Continue therapy on ASA for the next several days, but conversion to Warfarin/NOAC therapy should be completed given the CVA risks (3) Statins should continue for HLP (and maintain annual assessment of cholesterol and LFTs) (4) Norvasc and Cardizem to continue - the patient might require further up titration of therapy (5) Outpatient follow up with cardiology should be in less than one week. Subjective: No cardiovascular complaints were voiced. Reviewed/Discussed With: multidisciplinary team Objective: Vital Signs (8 Hrs) Temp Pulse Resp BP Pulse Ox 03/18/17 07:43 37.0 C 82 18 169/114 H 93 03/18/17 04:33 102 H 181/115 H 03/18/17 04:00 37.3 C 78 12 180/115 H 92 Intake/Output (24 Hrs) 03/17/17 03/18/17 03/19/17 05:59 05:59 05:59 Intake Total 2641.3 1379.3 Output Total 200 1200 Balance 2441.3 179.3 Intake: Oral (ml) 1900 1350 IV Intake (ml) 500 29.3 IV Infused (ml) 241.3 Diltiazem 125 mg In D5w 61.3 125 ml @ Per Protocol IV CONT BEN Rx#:[id number] niCARdipine/NACL 200 ml @ 180 Titrate IV CONT BEN Rx#: [id number] Output: Urine (ml) 200 1200 Bedside Commode 200 1200 Other: Weight 61.235 kg Intake Quantity Yes Yes Sufficient Number of Voids Bedside Commode 5 5 Toilet 6 Number of Stools Bedside Commode 2 Result Diagrams: 03/17/17 04:50 03/18/17 04:40 Cardiac Labs: Cardiac Lab Results (72 Hrs) 03/17/17 03/17/17 03/16/17 11:21 04:50 23:00 Troponin I 0.282 H 0.445 H 0.375 H 03/16/17 16:43 Troponin I 0.022 EKG: normal sinus rhythm Telemetry: normal sinus rhythm - Physical Exam Constitutional: WDWN, healthy appearing, no apparent distress Eyes: PERRL, EOMI Ears, Nose, Mouth, Throat: moist mucous membranes Cardiovascular: regular rate and rhythm, systolic murmur, No jugular vein distention Peripheral Pulses: 2+: dorsalis-pedis (R), dorsalis-pedis (L) Respiratory: clear to auscultate bilat, other (cough is productive (query upper air way location)) Gastrointestinal: normoactive bowel sounds Skin: no rashes, no edema Musculoskeletal: no muscular tenderness Neurologic: AAOx3, CN II-XII grossly intact Psychiatric: cooperative, interactive, following commands ICD10 Worksheet Patient Problems: Problems Problem Status Onset Acute CVA (cerebrovascular accident) Acute Hypertensive emergency Acute Hypertensive urgency Acute
--- NOTE | 2017-03-18 10:33 | PDCARST ---
CAR Stress Test Results Type of Stress Test: Sonja MPI Indication: chest pains with elevation in troponin Description of Procedure: After consent was obtained, patient was monitored with heart rate, blood pressure, oxyimetry, and live telemetry while the Lexiscan was injected. Impression: Drop in blood pressure (physiologic for the procedure performed) was noted. Mild nausea was also noted. No changes in ST/T wave segment were noted. Unremarkable Sonja infusion. Nuclear images are pending. Conclusion: Nuclear images are pending.
[2017-03-18] MEDS ORDERED: MAGNESIUM SULF 1 GM/DEXTROSE 100 ML IV ONE (10:47)
--- NOTE | 2017-03-18 13:34 | NEUROPROG ---
Assessment: [id number] CC: Stroke Narrative Summary: Pt admitted to [facility] on 03/17/17 after she presented to the hospital with right arm weakness. A brain MRI showed an acute left parietal and subacute left frontal stroke. Pt then found to be in afib which was felt to be mechanism of stroke. CTA head/neck unremarkable. She reported a history of untreated HTN. Her brain MRI also showed multiple old microhemorrhages consistent with hypertensive microbleeds versus less likely amyloid angiopathy. Pt started on aspirin for stroke prevention and statin. I initially saw the patient on . She felt her right arm strength was improving. HPI: Inpt F/U 03/18/17. Pt denied new complaints. She was seated in her chair on the phone. She was speaking w/o problems. She was able to hold the phone with her right hand. She requested I leave as she was on the phone and denied any questions. PMHx: untreated HTN Home Meds: none SHx: no tobacco FHx: no stroke ROS: No acute fever, total vision loss, active severe chest pain, respiratory failure, total body severe rash, total bowel/bladder incontinence, psychosis, active seizures, or active bleeding Labs: 03/16/17- CBC WBC 3.36L, Coags wnl, H1AC 5.5 03/17/17- Chem Ca 8.2L, LDL 132 Rads: 03/16/17- Brain MRI w/o con: acute left parietal small stroke, subacute R frontal small subcortical stroke, moderate to severe white disease consistent with CMVD, multiple prior micro hemorrhages seen on GRE suggestive of old hypertensive microbleeds versus amyloid angiopathy 03/16/17- CTA head/neck: unremarkable other than mild partially calcified b/l verts 03/16/17- Telemetry: afib with RVR 03/16/17- TTE: no cardiac thrombus reported, severe LV concentric hypertrophy Assessment: 1. Acute small left parietal and subacute small right frontal strokes from afib : Pt with known afib and strokes in multiple vascular territories so this is likely cardioembolic strokes. CTA head/neck unremarkable for alternative causes and TTE showed no cardiac thrombus. 2. HTN 3. Multiple old microhemorrhages on brain MRI 03/16/17 that likely represents hypertensive sequelae: Treatment will be aimed at excellent blood pressure control. Pt counseled that she has micro-hemorrhages that seems most likely to be from uncontrolled hypertension but may be due to amyloid angiopathy and that both are risk factors for intracerebral hemorrhage. Beginning anticoagulation increases bleed risk but it reduces stroke risk from afib to such a degree that I feel the benefits of anticoagulation outweigh risks, she accepts the risks of bleed and agrees to the oral anticoagulation on 03/17/17 4. New onset afib: hospitalist addressing, cardiology consulted Plan: - Agree with cardiology consult for new afib - Blood pressure < 220/120 x 24 hours then < 140/90 - LDL < 70 (132), pt started on statin - H1AC < 7.0 (5.5) - Begin aspirin 325 mg qd (not taking prior to stroke), on hospital discharge ( or within 5 days if here longer) begin oral anticoagulation and stop aspirin when pt therapeutic on oral anticoagulation - PT/OT/Speech, pt considering rehab at this time Neurology will sign off, please consult for any questions or change in neurologic status. Objective: Vital Signs Temp Pulse Resp BP Pulse Ox 36.9 C 97 20 158/89 H 92 03/18/17 12:16 03/18/17 12:16 03/18/17 12:16 03/18/17 12:16 03/18/17 12:16 Laboratory Results 03/17/17 04:50 03/18/17 04:40 03/17/17 03/18/17 03/19/17 05:59 05:59 05:59 Intake Total 2641.3 1379.3 114 Output Total 200 1200 Balance 2441.3 179.3 114 PT 12.9 SEC (12.0-15.0) 03/16/17 10:55 INR 0.95 (0.83-1.16) 03/16/17 10:55 Allergies/Adverse Reactions: acetaminophen [From Tylenol] Allergy (Verified 03/16/17 13:41) Swelling/neck,face,throat propranolol Allergy (Verified 03/16/17 13:41) Other-Enter Comments
[2017-03-18] MEDS ORDERED: IBUPROFEN 600 MG TAB PO PRN (16:08)
[2017-03-18] MEDS: hydrALAZINE 25 MG TAB PO PRN ×2 (16:26→22:10)
[2017-03-18 17:29] LABS: % IMMATURE GRANULYOCYTES 0.2 % (0.0-1.1); ABSOLUTE IMMATURE GRANULOCYTES 0.01 10^3/uL (0.00-0.10); ADD DIFF? NO; ADD MORPH? NO; ADD SCAN? NO; ATYPICAL LYMPHOCYTE FLAG 30 (0-99); FRAGMENT RBC FLAG 0 (0-99); HEMOGLOBIN 13.6 g/dL (12.6-16.3); LEFT SHIFT FLG 0 (0-99); LIPEMIA HEMOLYSIS FLAG 80 (0-99); MEAN CELL HEMOGLOBIN 26.9 pg (27.9-34.1); MEAN CELL HEMOGLOBIN CONCENTR. 33.2 g/dL (32.4-36.7); MEAN PLATELET VOLUME 10.9 fL (8.7-11.7); PLATELET CLUMPS FLAG 0 (0-99); PLATELET COUNT 173 10^3/uL (150-400); RED BLOOD CELL COUNT 5.06 10^6/uL (4.18-5.33); RED CELL DISTRIBUTION WIDTH 14.1 % (11.5-15.2)
[2017-03-18 20:31] LABS: POTASSIUM 3.3 mEq/L (3.5-5.2)
[2017-03-18] MEDS ORDERED: POTASSIUM CL 10 MEQ TAB PO ONE (20:38)
[2017-03-19 05:20] LABS: MAGNESIUM 1.8 mg/dL (1.6-2.3); POTASSIUM 3.6 mEq/L (3.5-5.2)
[2017-03-19] MEDS: DILTIAZEM CD 120 MG CAP PO SCH (08:44)
[2017-03-19] MEDS: amLODIPine BESYLATE 5 MG TAB PO SCH (08:45)
[2017-03-19] MEDS: ASPIRIN EC 325 MG TAB PO SCH (08:46)
[2017-03-19] MEDS: ATORVASTATIN CALCIUM 40 MG TAB PO SCH (08:46)
[2017-03-19] MEDS ORDERED: MAGNESIUM SULF 1 GM/DEXTROSE 100 ML IV ONE (08:54)
--- NOTE | 2017-03-19 11:18 | HOSPPROG ---
Hospitalist Progress Note Assessment/Plan: Acute and subacute ischemic CVA - suspect cardio-embolic source. -Cont ASA, statin A fib with RVR - converted back to NSR. Chads-vasc 5. TSH normal. Echo without WMA or significant valve disease. -cont oral dilt for rate control -needs anti-coagulation, start at d/c or 03/21 if still here per neurology Hypertension - Not controlled, goal at this point is <140/90 -cont oral dilt -increase norvasc Elevated troponin - trop peaked at 0.44. Lexiscan yesterday abnormal and resting images this am suggest reversible ischemia of free wall left lateral ventricle. Chest pain free. -will discuss with cards, may need angiogram prior to dc URI - CXR was negative. Supportive care. Pt declined mucinex. ?THELMA - needs outpt sleep study Full code DVT PPLX - Lovenox Dispo - cont inpt, PT/OT recommending rehab, but pt doesn't sound agreeable. HHC at minimum. Objective: Vital Signs Temp Pulse Resp BP Pulse Ox 37.3 C 87 16 169/94 H 93 03/19/17 07:27 03/19/17 07:27 03/19/17 07:27 03/19/17 08:45 03/19/17 07:27 Laboratory Results 03/18/17 16:39 03/19/17 04:28 03/18/17 03/19/17 03/20/17 05:59 05:59 05:59 Intake Total 1379.3 514 700 Output Total 1200 Balance 179.3 514 700 PT 12.9 SEC (12.0-15.0) 03/16/17 10:55 INR 0.95 (0.83-1.16) 03/16/17 10:55 ICD10 Worksheet Patient Problems: Problems Problem Status Onset Acute CVA (cerebrovascular accident) Acute Hypertensive emergency Acute Hypertensive urgency Acute
--- NOTE | 2017-03-19 11:42 | ASMTCMCOM ---
CM Note CM Note Notes: Spoke with patient about discharge planning - she is amenable to HC. Per hospitalist, patient had an abnormal stress test and may need to go to [facility]. Spoke with Marlene at [facility], she is able to accept patient for RN/PT/OT upon discharge. Case Management will follow. Date Signed: 03/19/2017 11:42 AM Electronically Signed By:Jeanne Bar RN
--- NOTE | 2017-03-19 14:09 | PDCARPN ---
Cardiology Progress Note Chief Complaint: patient reporting fatigue symptoms, mild lightheadedness. "Water in her ear" Assessment/Plan: Assessment: Patient is a 71-year-old female who presented to urgent care on 03/16/17 for sore throat and was found to be hypertensive with a BP >180/100, and was sent [facility] ED for hypertension. In the ED, she was found to have a BP of 193/134 and reported right sided weakness. Brain MRI revealed an acute left parietal lacunar infarct, subacute right frontal white matter lacunar infarct, and extensive cerebral white matter disease associated with multiple prior microhemorrhages. Head and neck CTA revealed no evidence of intracranial hemorrhage, but did show mild partially calcified plaque involving the distal vertebral artery bilaterally. A repeat electrocardiogram in the showed that patient had converted from sinus rhythm to atrial fibrillation during her time in the ED. Chest x-ray was negative for acute cardiopulmonary process. Mild elevated troponin (peaking at 0.445 on 03/17, downward decline to normal levels) . Patient was admitted for acute CVA, hypertension, and atrial fibrillation. Patient initiated on diltiazem therapy and converted back to sinus rhythm in the ICU on the first night of admission. Echocardiogram done on 03/16/17 revealed severe concentric LVH, global hypercontractility of the LV, no regional wall motion abnormalties, and LVEF 75-80%. Patient underwent MPI study on 03/18/17 showing mild reversible ischemia involving the free wall of the left lateral ventricle. Today patient denies any current or past chest pain, chest pressure, palpitations, shortness of breath, dyspnea on exertion. Planned: 1. PAF: Currently patient is in sinus rhythm with frequent PACs. I discussed diagnosis of atrial fibrillation with patient and risk/benefit of anticoagulation therapy. She verbalized understanding and expressed concern regarding the cost of DACs. Plan is to initiate warfarin on Sunday, per neurology hold for 5 days post CVA. Discontinue diltiazem. Initiate carvedilol. 2. Elevated troponin: Currently within normal limits. LVEF normal by echo and MPI study showing mild reversible ischemia involving the free wall of the left lateral ventricle. Patient has had no chest pain or symptoms of ischemia since admission. After discussing with patient, best course to proceed for further evaluation of ischemia. At current time will treat medically with plan of early follow-up and if necessary catheterization after she has recovered from CVA. Transitioned to carvediolol, do think that once patient starts full anticoagulation, aspirin should be decreased to 81 mg QD. Patient has been started on atorvastatin. 3. HTN: Still suboptimally controlled. Today's BP as high as 169/94. Hospitalist uptitrated [facility], hopefully with transition from diltiazem to carvedilol we will see more improvement. 4. HLD: Recent CVA and now positive MPI. Patient has been started on atorvastatin, goal of LDL <70. Will repeat fasting lipid and liver panel in 6-8 weeks to evaluate therapy. 5. CVA: Most likely thrombotic from atrial fibrillation. Anticoagulation, blood pressure management, and hyperlipidemia management as above. Patient also being followed by neurology. Continue on aspirin therapy for 5 days post-CVA, then initiate anticoagulation. I have spoken with hospital services regarding the initiation of carvediolol and discontinuation of diltiazem. I feel the patient should be monitored overnight to observe with initial dosing. 03/19/17 14:06 Subjective: patient denies of any chest pressure pain, reports no shortness of breath orthopnea, PND, palpitations, near-syncope or syncopal events. Reviewed/Discussed With: hospitalist (Dr. Apodaca), other (Dr Leblanc) Objective: Vital Signs (8 Hrs) Temp Pulse Resp BP Pulse Ox 03/19/17 11:27 36.8 C 91 18 147/89 H 91 L 03/19/17 08:45 169/94 H 03/19/17 07:27 37.3 C 87 16 165/96 H 93 Intake/Output (24 Hrs) 03/18/17 03/19/17 03/20/17 05:59 05:59 05:59 Intake Total 1379.3 514 700 Output Total 1200 500 Balance 179.3 514 200 Intake: Oral (ml) 1350 400 700 IV Intake (ml) 29.3 114 Output: Urine (ml) 1200 500 Bedside Commode 1200 Incontinence 500 Other: Intake Quantity Yes Yes Sufficient Number of Voids Bedside Commode 5 Incontinence 1 Toilet 6 3 2 Result Diagrams: 03/18/17 16:39 03/19/17 04:28 Cardiac Labs: Cardiac Lab Results (72 Hrs) 03/17/17 03/17/17 03/16/17 11:21 04:50 23:00 Troponin I 0.282 H 0.445 H 0.375 H 12/08/17 16:43 Troponin I 0.022 - Physical Exam Constitutional: WDWN, healthy appearing, no apparent distress Ears, Nose, Mouth, Throat: moist mucous membranes Cardiovascular: regular rate and rhythm, no murmurs, no rubs, no gallops, pulses symmetric bilat, No jugular vein distention Peripheral Pulses: 1+: dorsalis-pedis (R), dorsalis-pedis (L) Respiratory: clear to auscultate bilat, no crackles, no wheezes, No reduced air movement Gastrointestinal: normoactive bowel sounds Skin: no rashes, warm, no edema Neurologic: AAOx3 Psychiatric: cooperative, interactive, following commands ICD10 Worksheet Patient Problems: Problems Problem Status Onset Hypertensive urgency Acute Acute CVA (cerebrovascular accident) Acute Hypertensive emergency Acute
[2017-03-19] MEDS: CARVEDILOL 6.25 MG TAB PO SCH (17:51)
[2017-03-19 19:10] LABS: POTASSIUM 3.9 mEq/L (3.5-5.2)
[2017-03-20 06:20] LABS: POTASSIUM 3.9 mEq/L (3.5-5.2)
[2017-03-20 08:01] VITALS: BP 142/92; RESP 14; TEMP 98.7; O2SAT 96
[2017-03-20] MEDS: CARVEDILOL 6.25 MG TAB PO SCH (08:05)
[2017-03-20 08:08] VITALS: PULSE 71
--- NOTE | 2017-03-20 08:31 | PDIAF ---
- Diagnosis Diagnosis: Atrial fibrillation, CVA, abnormal stress test Code Status: Full Code - Medication Management Discharge Medications: Medications to Continue on Transfer Herbals/Supplements -Info Only 1 ea PO DAILY 03/16/17 [Last Taken Unknown] Discharge Medications: Refer to the Discharge Home Medication list for PRN reason. - Orders Services needed: Home Care, Registered Nurse, Certified Retail Center Receptionist, Physical Therapy, Occupational Therapy Home Care Face to Face: I certify that this patient was under my care and that I had the required [id number] encounter meeting the encounter requirements on the discharge day. My findings support the fact that the patient is homebound as defined in Home Care Face to Face Continued: CMS Chapter 7 Medicare Benefits Manual 30.1.1 , The condition of the patient is such that there exists a normal inability to leave home and consequently, leaving home would require a considerable and taxing effort. Diet Recommendation: cardiac -low fat low salt Activity/Weight Bearing Restrictions: Activity as tolerated - Labs/Radiology PT/INR Date: 03/22/17 - Follow Up Care Current Providers and Referrals: QUENTIN PERKINS,FAMILY MEDICINE [Other] - As per Instructions Scar Leblanc MD [Medical Doctor] - Len Jimenez DO [Medical Doctor] -
--- NOTE | 2017-03-20 08:41 | PDIAF ---
- Diagnosis Diagnosis: Atrial fibrillation, CVA, abnormal stress test Code Status: Full Code - Medication Management Discharge Medications: Medications to Continue on Transfer Herbals/Supplements -Info Only 1 ea PO DAILY 03/16/17 [Last Taken Unknown] Aspirin EC [Aspirin EC 81 mg (*)] 81 mg PO DAILY #30 tab 03/20/17 [Last Taken Unknown] Atorvastatin Calcium [Lipitor 40 mg (*)] 80 mg PO DAILY #30 tab 03/20/17 [Last Taken Unknown] Carvedilol [Coreg (*)] 6.25 mg PO BIDMEAL #60 tab 03/20/17 [Last Taken Unknown] Warfarin Sodium [Coumadin 5MG (*)] 5 mg PO DAILY16 #30 tab 03/20/17 [Last Taken Unknown] amLODIPine BESYLATE [Norvasc 5 mg (*)] 10 mg PO DAILY #30 tab 03/20/17 [Last Taken Unknown] Discharge Medications: Refer to the Discharge Home Medication list for PRN reason. - Orders Services needed: Home Care, Registered Nurse, Certified Mysql Database Developer, Physical Therapy, Occupational Therapy Home Care Face to Face: I certify that this patient was under my care and that I had the required [id number] encounter meeting the encounter requirements on the discharge day. My findings support the fact that the patient is homebound as defined in Home Care Face to Face Continued: CMS Chapter 7 Medicare Benefits Manual 30.1.1 , The condition of the patient is such that there exists a normal inability to leave home and consequently, leaving home would require a considerable and taxing effort. Diet Recommendation: cardiac -low fat low salt Activity/Weight Bearing Restrictions: Activity as tolerated Additional: Check daily BP and call Dr. Leblanc if >140's/90's - Labs/Radiology PT/INR Date: 03/22/17 (Call results to [facility]) - Follow Up Care Current Providers and Referrals: QUENTIN PERKINS,FAMILY MEDICINE [Other] - As per Instructions Len Jimenez DO [Medical Doctor] - Scar Leblanc MD [Medical Doctor] - (March 27 at 3:15 PM at [facility])
[2017-03-20] MEDS: amLODIPine BESYLATE 5 MG TAB PO SCH (09:04)
[2017-03-20] MEDS: ATORVASTATIN CALCIUM 40 MG TAB PO SCH (09:04)
[2017-03-20] MEDS: ASPIRIN EC 325 MG TAB PO SCH (09:04)
--- NOTE | 2017-03-20 09:26 | PDCARPN ---
Cardiology Progress Note Chief Complaint: Water in right ear. Assessment/Plan: Assessment: Patient is a 71-year-old female who presented to urgent care on 03/16/17 for sore throat and was found to be hypertensive with a BP >180/100, and was sent [facility] ED for hypertension. In the ED, she was found to have a BP of 193/134 and reported right sided weakness. Brain MRI revealed an acute left parietal lacunar infarct, subacute right frontal white matter lacunar infarct, and extensive cerebral white matter disease associated with multiple prior microhemorrhages. Head and neck CTA revealed no evidence of intracranial hemorrhage, but did show mild partially calcified plaque involving the distal vertebral artery bilaterally. A repeat electrocardiogram in the showed that patient had converted from sinus rhythm to atrial fibrillation during her time in the ED. Chest x-ray was negative for acute cardiopulmonary process. Mild elevated troponin (peaking at 0.445 on 03/17, downward decline to normal levels) . Patient was admitted for acute CVA, hypertension, and atrial fibrillation. Patient initiated on diltiazem therapy and converted back to sinus rhythm in the ICU on the first night of admission. Echocardiogram done on 03/16/17 revealed severe concentric LVH, global hypercontractility of the LV, no regional wall motion abnormalities, and LVEF 75-80%. Patient underwent MPI study on 03/18/17 showing mild reversible ischemia involving the free wall of the left lateral ventricle. Most recent blood pressure is 142/92. Patient denies any current chest pain or shortness of breath. Patient notes that she has not had any chest pain, pressure , or dyspnea during this admission. Patient states that she feels well other than a pressure in her right ear which she feels is water from her shower yesterday morning. Planned: 1. PAF: Currently patient is in sinus rhythm. Discussed Coumadin initiation and INR with patient, and she verbalized understanding. Plan is to initiate warfarin today with no bridge. INR will be drawn by home health on and results called in to [facility] for dose adjustment. Once patient is out of home health, she will be transitioned to Coumadin Clinic. INR goal of 2.0 to 3.0. Continue carvedilol. 2. Elevated troponin: Currently within normal limits. LVEF normal by echo and MPI study showing mild reversible ischemia involving the free wall of the left lateral ventricle. Patient has had no chest pain or symptoms of ischemia since admission. After discussing with patient,for course to proceed for further evaluation of ischemia. At current time will treat medically with plan of early follow-up and if necessary catheterization after she has recovered from CVA. Cont on carvedilol, once started on anticoagulation, aspirin decreased to 81 mg QD. Patient has been started on atorvastatin. Patient has follow-up appointment next week with Dr. Leblanc. 3. HTN: Patient was transitioned from diltaizem to carvedilol yesterday, with her first dose of carvedilol last night. Hospitalist uptitrated [facility]. Blood pressure has dramatically improved from >200/100 to 142/92. However, blood pressure remains suboptimal. Discussed with Dr. Apodaca, we feel she has made significant improment with the the starting of novasc and coreg for the time being. Will allow her to adjust to new medication before any further adjustment. Have asked patient to started a home BP log daily and bring to office appointment, their further adjustments can be made. Plan if for follow- up with Dr. Leblanc next week. 4. HLD: Recent CVA and now positive MPI. Patient has been started on atorvastatin, goal of LDL <70. Will repeat fasting lipid and liver panel in 6-8 weeks to evaluate therapy. Follow-up with Dr. Leblanc outpatient. 5. CVA: Most likely thrombotic from atrial fibrillation. Anticoagulation, blood pressure management, and hyperlipidemia management as above. Patient also being followed by neurology. Continue on aspirin therapy for 5 days post-CVA, then initiate anticoagulation. 03/20/17 09:12 Subjective: Denies any chest pain, palpitations, shortness of breath. Reporting that she ultimately feels better. Reviewed/Discussed With: hospitalist (Dr. Apodaca), other (Dr. Leblanc) Objective: Vital Signs (8 Hrs) Temp Pulse Resp BP Pulse Ox 03/20/17 09:04 142/92 H 03/20/17 08:05 71 142/92 H 03/20/17 07:59 37.1 C 70 14 142/92 H 96 Intake/Output (24 Hrs) 03/19/17 03/20/17 03/21/17 05:59 05:59 05:59 Intake Total 514 1300 Output Total 500 Balance 514 800 Intake: Oral (ml) 400 1300 IV Intake (ml) 114 Output: Urine (ml) 500 Incontinence 500 Other: Intake Quantity Yes Sufficient Number of Voids Incontinence 1 2 Toilet 3 2 Result Diagrams: 03/18/17 16:39 03/20/17 04:27 Cardiac Labs: Cardiac Lab Results (72 Hrs) 03/17/17 11:21 Troponin I 0.282 H - Physical Exam Constitutional: healthy appearing, no apparent distress Ears, Nose, Mouth, Throat: moist mucous membranes Cardiovascular: regular rate and rhythm, no murmurs, no rubs, no gallops, pulses symmetric bilat, No jugular vein distention, No carotid bruit Peripheral Pulses: 1+: dorsalis-pedis (R), dorsalis-pedis (L), 2+: carotid (R), carotid (L) Respiratory: clear to auscultate bilat, no crackles, no wheezes Skin: warm, no edema Musculoskeletal: No asymmetric calves ICD10 Worksheet Patient Problems: Problems Problem Status Onset Hypertensive urgency Acute Acute CVA (cerebrovascular accident) Acute Hypertensive emergency Acute
--- NOTE | 2017-03-20 15:52 | ASDISCHSUM ---
Discharge Information Plan Status:Home with Home Health Medically Cleared to Leave: Discharge Date:03/20/2017 11:25 AM CM D/C Disposition:Home Health Service ADT D/C Disposition:Home, Routine, Self-Care Projected Discharge Date:03/20/2017 11:25 AM Transportation at D/C:Friend Discharge Delay Reason: Follow-Up Date:03/20/2017 11:25 AM Discharge Slot: Final Diagnosis: Placement Information Patient Contact Information Contact Name:CORRY Relationship:Sister Address: Work Phone: City: [facility] Phone: State/[place] Code: Email: Financial Information Financial Class: Primary Plan Desc:MEDICARE INPATIENT Primary Plan Number:[id number] Secondary Plan Desc:[employer] Secondary Plan Number:[id number] Assessment Information [facility] CM Progress Note CM Note CM Note Notes: Pt in for uncontrolled hypertension. She lives alone but rents out room in her house. PT recommends hc but OT recommends inpt rehab. DC needs unclear, CM w/f Date Signed: 03/17/2017 05:54 PM Electronically Signed By:Nya Solitario RN [facility] CM Progress Note CM Note CM Note Notes: Spoke with patient about discharge planning - she is amenable to HC. Per hospitalist, patient had an abnormal stress test and may need to go to quality lab technician. Spoke with Marlene at [facility], she is able to accept patient for RN/PT/OT upon discharge. Case Management will follow. Date Signed: 03/19/2017 11:42 AM Electronically Signed By:Jeanne Bar RN Intervention Information Intervention Type:*IM-Signed Date of Service:03/20/2017 11:29 AM Patient Type:Inpatient Staff Member:Cherelle Rivero Hours: Discipline: Severity: Comment:
--- NOTE | 2017-03-20 19:12 | GDS ---
[f rep st] DISCHARGE SUMMARY DISCHARGE DIAGNOSES: 1. Acute ischemic cerebrovascular accident. 2. Atrial fibrillation with rapid ventricular rate, now in sinus rhythm. 3. Hypertension. 4. Abnormal nuclear medicine stress test with an elevated troponin. 5. Presumed coronary artery disease. 6. Upper respiratory infection, improved. 7. Suspected obstructive sleep apnea. CONSULTANTS: 1. Dr. Scar Leblanc, Cardiology. 2. Dr. Len Jimenez, Neurology. HISTORY: For details please see dictated history and physical dated March 16, 2017. In brief, this patient is a 71-year-old female with a history of hypertension which is currently untr eated, who presents to the emergency department with elevated blood pressure and a recent history of discoordination of her right hand and weakness of her right upper extremity. Imaging in the emergenc y department revealed acute and subacute strokes with prior microhemorrhages related to uncontrolled hypertension. She was admitted to the hospital for further management. HOSPITAL COURSE: The patient was admitted to the Medical/Surgical Unit. Shortly after admission, neha yuan developed rapid atrial fibrillation. She initially received a full-dose aspirin for her acute stro ke. In addition, she was started on a Cardene drip, which was soon after discontinued in favor of di ltiazem for rate control of her atrial fibrillation. She also required a dose of digoxin. She then converted to normal sinus rhythm and was transitioned to oral diltiazem. An echocardiogram was perfo rmed and did not reveal any significant valvular abnormalities. There is no wall motion abnormality. She does have a CHADS-VASc score of 5 in the setting of her new ischemic stroke, and anticoagulatio n is recommended and will be started today, on the day discharge. Home Health Services are requested , and she will need an INR drawn on March 21. Results will go to Dr. Leblanc at the [facility], and she will continue to follow with the Anticoagulation Clinic through [facility] once she is discharged from Home Health. In addition, she had an elevated troponin to 0.44. This occurred in the setting of rapid atrial fibr illation. She underwent inpatient stress testing which was abnormal and showed evidence of reversibl e ischemia. I discussed the case with Cardiology and it was decided to defer inpatient angiogram giv en her recent stroke. She is continued on aspirin and statin therapy. Her diltiazem was changed to Coreg. She will follow up with [facility] for outpatient angiogram at the time they deem a ppropriate. I also recommend she have an outpatient sleep study. I reviewed her multiple new diagno ses and medications with her multiple times prior to discharge. The patient has a poor memory and so me cognitive impairment, which does raise concern about her compliance. She will need close followup with her primary care. DISPOSITION: The patient is discharged home in stable condition with Home Health Services, including RN, PT, OT, and THERAPY DIRECTOR. FOLLOWUP: 1. Dr. Scar Leblanc, [facility]. 2. [facility]. 3. Dr. Len Jimenez, Neurology. 4. INR on March 21, with results to Dr. Leblanc at [facility] and further Coumadin adjus tments. She is also referred to Anticoagulation Clinic. 5. She will need daily blood pressure checks and is instructed to call [facility] if she i s persistently greater than 140s over 90s. DISCHARGE MEDICATIONS: [facility] see [facility] for complete updated outpatient medication list New medications on discharge: 1. Aspirin 81 mg p.o. daily #30, no refills. 2. Atorvastatin 80 mg p.o. daily #30, no refills. 3. Coreg 6.25 mg p.o. twice daily #60, no refills. 4. Warfarin 5 mg p.o. daily #30, no refills (she will take 5 mg daily for 2 days then an INR will be checked and dose adjustment per [facility] going forward). 5. Amlodipine 10 mg p.o. daily #30, no refills. /[id number]/MODL
== END 2017-03-20 11:25 | disposition home or self-care (01) | DRG 66 ==
LOC: F2N 15:13 → F3N 03-18 15:15
PROVIDERS: ADMIT Internal Medicine; ATTEND Internal Medicine
DX: I63.9 Cerebral infarction, unspecified (principal); I48.91 Unspecified atrial fibrillation; I10 Essential (primary) hypertension; I25.10 Atherosclerotic heart disease of native coronary artery without angina pectoris; G47.33 Obstructive sleep apnea (adult) (pediatric); J06.9 Acute upper respiratory infection, unspecified; E87.6 Hypokalemia
CPT/HCPCS: 92523-GN; 96365; 97110-GO; 97116-GP; 97161-GP; 97165-GO; 97530-GO; 97530-GP; 97535-GO; A9500; G8978-GP-CJ; G8979-GP-CI; G8980-GP-CI; G8987-GO-CK; G8988-GO-CH; G9168-GO-CI; G9169-GN-CI; J1160; J2785; J3475; Q9967

== ENCOUNTER → 2017-06-18 | Outpatient (CLI) | payer OTHER | LOC: BMCIMAGING 14:35 | PROVIDERS: ATTEND Family Medicine | DX: M79.672 Pain in left foot (principal) ==